=== PATIENT | male | born 2005 | race Two or more races ===

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

== ENCOUNTER 2023-05-24 00:16 | Emergency (ER) | payer OTHER ==
[~2023-05-24] VITALS: Ht 177.8 cm; Wt 70.0 kg
[2023-05-24 00:16] VITALS: BP 138/90; RESP 24; O2SAT 98
[2023-05-24] MEDS ORDERED: HYDR25CA PO (01:34)
[2023-05-24 01:38] VITALS: PULSE 84
[2023-05-24] MEDS: IBUPROFEN 600 MG TAB PO ONE (04:17)
[2023-05-24] MEDS: LORazepam 0.5 MG TAB PO ONE (04:17)
== END 2023-05-24 04:18 | disposition left against medical advice (07) ==
LOC: ER 00:16
DX: F41.9 Anxiety disorder, unspecified (principal); F14.90 Cocaine use, unspecified, uncomplicated; R94.31 Abnormal electrocardiogram [ECG] [EKG]
CPT/HCPCS: 93005